=== PATIENT | male | born 1955 | race Two or more races ===

== ENCOUNTER 2016-12-06 20:03 | Emergency (ER) | payer OTHER ==
[~2016-12-06] VITALS: Ht 167.6 cm; Wt 74.4 kg
--- NOTE | 2016-12-06 21:20 | NUR ---
Patient walked in to ER c/o rash/wound to RIGHT lower extremity. Patient states that he had a small wound (possibly a bugbite) which was cleaned by family approximately one week CUSTOM CLOTHIER. Patient states that yesterday the wound was again cleaned by family as it was observed to have grown in size. Patient presents with an approximate 5" x 1.5" area of weeping erythema to his RIGHT delgadillo. To room 4B.
[2016-12-06] MEDS ORDERED: TDAP DIPH,PERTUSS,TET VAC/PF 0.5 ML DISP.SYRIN IM ONE ×2 (22:30→22:41)
[2016-12-06] MEDS ORDERED: NEOMY/BACITRA/POLYMYXIN B OINT UD PACKET TP ONE ×2 (22:30→23:03)
[2016-12-06] MEDS ORDERED: CLINDAMYCIN HCL 150 MG CAPSULE PO ONE (22:45)
--- NOTE | 2016-12-06 22:54 | NUR ---
Patient discharged to home in stable conditon. Written and verbal after care instructions given. Patient verbalizes understanding of instructions.
[2016-12-06] MEDS ORDERED: CLINDAMYCIN HCL 300 MG CAPSULE ONE (23:03)
== END 2016-12-06 22:54 | disposition home or self-care (01) ==
LOC: ER 20:05
DX: S81.801A Unspecified open wound, right lower leg, initial encounter (principal); F17.200 Nicotine dependence, unspecified, uncomplicated; X58.XXXA Exposure to other specified factors, initial encounter; Y93.89 Activity, other specified; Y92.9 Unspecified place or not applicable; Y99.9 Unspecified external cause status
CPT/HCPCS: 90471; 90715; 99283; A4663

== ENCOUNTER 2016-12-19 17:44 | Inpatient (IN) | payer OTHER ==
[~2016-12-19] VITALS: Ht 162.6 cm; Wt 76.2 kg
[2016-12-19] MEDS ORDERED: PIPERACILLIN SODIUM/TAZOBACTAM 3.375 G in IV DEXTROSE 5% 50 ML IV ONE (18:30)
[2016-12-19] MEDS ORDERED: VANCOMYCIN IV 1,000 MG in IV DEXTROSE 5% 250 ML IV ONE (18:30)
[2016-12-19] MEDS ORDERED: IV NORMAL SALINE 1000 ML BAG IV ONE (18:30)
[2016-12-19] MEDS ORDERED: PIPERACILLIN/TAZOBACTAM/D5W 50 ML IV ONE (18:58)
[2016-12-19 19:18] LABS: BASOPHILS # (AUTO) 0.1 K/uL (0.0-8.0); BASOPHILS % (AUTO) 0.7 % (0.0-2.0); CREATININE 1.1 mg/dL (0.6-1.3); EOSINOPHILS # (AUTO) 0.5 K/uL (0.0-0.7); EOSINOPHILS % (AUTO) 5.9 % (0.0-7.0); HEMATOCRIT 44.4 % (40-50); HEMOGLOBIN 15.5 G/DL (14.0-18.0); LYMPHOCYTES # (AUTO) 2.8 K/UL (0.8-4.8); LYMPHOCYTES % (AUTO) 34.9 % (20.5-51.5); MEAN CORPUSCULAR HEMOGLOBIN 30.7 UUG (27.0-31.0); MEAN CORPUSCULAR HGB CONC 35 g/dL (32.0-37.0); MONOCYTES # (AUTO) 0.5 K/UL (0.1-1.30); MONOCYTES % (AUTO) 6.2 % (0.0-11.0); NEUTROPHILS # (AUTO) 4.2 K/UL (1.8-8.9); NEUTROPHILS % (AUTO) 52.3 % (38.5-71.5); PLATELET COUNT (AUTO) 182 K/UL (150-450); POTASSIUM 3.3 mmol/L (3.5-5.1); RED BLOOD CELL COUNT(AUTO) 5.05 MIL/UL (4.7-6.1); WHITE BLOOD COUNT (AUTO) 8.1 K/UL (4.0-11.2)
[2016-12-19 19:23] LABS: BILIRUBIN,DIRECT 0.1 mg/dL (0.0-0.2); BILIRUBIN,TOTAL 0.4 mg/dL (0.2-1.0); TOTAL PROTEIN, SERUM 7.1 g/dL (6.4-8.2)
--- NOTE | 2016-12-19 19:34 | NUR ---
EPIC PAGED AT THIS TIME.
--- NOTE | 2016-12-19 19:36 | NUR ---
DR. MARCUM PLUG OVERWRAP MACHINE TENDER, AWAITING CALL BACK.
[2016-12-19] MEDS ORDERED: VANCOMYCIN 1000 MG VIAL ONE (19:37)
--- NOTE | 2016-12-19 19:56 | NUR ---
Pt. admitted to MED/SURGE , under care of Dr. MARCUM Belongs List completed.
--- NOTE | 2016-12-19 20:03 | NUR ---
REPORT CALLED TO CHAD SALINAS. NS AND IV ABX INFUSING. REPORT GIVEN TO RITA TO COMPLETE FLUIDS AND ABX.
--- NOTE | 2016-12-19 20:30 | NUR ---
PATIENT ADMITTED AT 2030 [facility], MED-SURG STATUS. CAME FROM ED, THROUGH [facility]. PATIENT IS A/OX3, DANISH-SPEAKING. SPOUSE PRESENT TO TRANSLATE. PATIENT IS AMBULATORY, WITH STEADY GAIT, ABLE TO AMBULATE FROM [facility] TO BED. PATIENT IN STABLE CONDITION. BLOOD PRESSURE ELEVATED, WILL CONTINUE TO MONITOR PATIENT'S BLOOD PRESSURE. ALL OTHER VITALS WNL. NO S/S OF DISTRESS. PATIENT COMPLAINS OF 5/10 DULL/BURNING PAIN ON PAIN SCALE AT RIGHT LEG, WHERE CELLULITIS IS PRESENT. PATIENT SAYS PAIN LEVEL IS TOLERABLE. BED IN LOCKED/LOW POSITION WITH SIDE RAILS UP X2. COMFORT/SAFETY WILL BE PROVIDED THROUGHOUT SHIFT.
[2016-12-19 20:45] VITALS: BP 166/88
[2016-12-19] MEDS ORDERED: POTASSIUM CHLORIDE 20 MEQ TAB.PRT.SR PO ONE (21:30)
[2016-12-19] MEDS ORDERED: PIPERACILLIN/TAZOBACTAM/D5W 50 ML IV SCH (21:30)
[2016-12-19] MEDS ORDERED: ONDANSETRON 4 MG/2 ML VIAL IV PRN (21:30)
[2016-12-19] MEDS ORDERED: ZOLPIDEM 5 MG TABLET PO PRN (21:30)
[2016-12-19] MEDS ORDERED: MAGNESIUM HYDROXIDE 30 ML LIQUID UDC PO PRN (21:30)
--- NOTE | 2016-12-19 21:30 | NUR ---
ZOSYN SCHEDULED FOR 2129 NOT ADMINISTERED BECAUSE IT WAS GIVEN IN THE EMERGENCY DEPARTMENT. NEXT DOSE TO ADMINISTER WILL BE AT 0.
[2016-12-19] MEDS ORDERED: CLONIDINE HCL 0.1 MG TABLET PO PRN (21:45)
[2016-12-19] MEDS ORDERED: PIPERACILLIN SODIUM/TAZO 3.375 GM VIAL ONE (22:35)
[2016-12-20 01:01] VITALS: BP 166/80
[2016-12-20] MEDS ORDERED: POTASSIUM CHLORIDE 20 MEQ TAB.PRT.SR ONE (01:11)
--- NOTE | 2016-12-20 03:00 | NUR ---
K-DUR 20 MEQ ADMINISTERED AT 0300
--- NOTE | 2016-12-20 03:00 | NUR ---
ZOSYN ADMINISTERED TO PATIENT. FIRST DOSE GIVEN AFTER ADMISSION INTO [facility]-S[facility].
[2016-12-20] MEDS: ACETAMINOPHEN 325 MG TABLET PO PRN ×2 (06:13→20:10)
--- NOTE | 2016-12-20 06:13 | NUR ---
TYLENOL GIVEN TO PATIENT FOR DULL LEFT SHOULDER PAIN 8/10 ON PAIN SCALE.
[2016-12-20] MEDS ORDERED: ACETAMINOPHEN 325 MG TABLET ONE (06:26)
--- NOTE | 2016-12-20 06:33 | NUR ---
PATIENT SLEPT COMFORTABLY MOSTLY THROUGH THE NIGHT SINCE ADMISSION. PATIENT IS IN STABLE CONDITION. PATIENT'S VSS. REASSESSMENT OF BP THROUGHOUT SHIFT: BP WNL. MOST RECENT AT 0400 126/70. BED IN LOCKED/LOW POSITION, WITH SIDE RAILS UP X2. CALL LIGHT WITHIN REACH. SAFETY WILL CONTINUE TO BE PROVIDED UNTIL SHIFT IS COMPLETED.
[2016-12-20 06:38] LABS: BASOPHILS % (AUTO) 0.4 % (0.0-2.0); EOSINOPHILS # (AUTO) 0.4 K/uL (0.0-0.7); EOSINOPHILS % (AUTO) 6.1 % (0.0-7.0); HEMOGLOBIN 14.9 G/DL (14.0-18.0); LYMPHOCYTES # (AUTO) 2.4 K/UL (0.8-4.8); LYMPHOCYTES % (AUTO) 33.4 % (20.5-51.5); MEAN CORPUSCULAR HEMOGLOBIN 31.4 UUG (27.0-31.0); MEAN CORPUSCULAR HGB CONC 36 g/dL (32.0-37.0); MEAN CORPUSCULAR VOLUME 88.1 FL (82.0-92.0); MONOCYTES # (AUTO) 0.5 K/UL (0.1-1.30); MONOCYTES % (AUTO) 6.5 % (0.0-11.0); NEUTROPHILS # (AUTO) 3.9 K/UL (1.8-8.9); NEUTROPHILS % (AUTO) 53.6 % (38.5-71.5); PLATELET COUNT (AUTO) 169 K/UL (150-450); RED BLOOD CELL COUNT(AUTO) 4.77 MIL/UL (4.7-6.1); WHITE BLOOD COUNT (AUTO) 7.2 K/UL (4.0-11.2)
[2016-12-20 06:39] LABS: CREATININE 1.2 mg/dL (0.6-1.3); MAGNESIUM 1.9 mg/dL (1.8-2.4); PHOSPHOROUS 3.8 mg/dL (2.5-4.9); POTASSIUM 3.6 mmol/L (3.5-5.1)
[2016-12-20 06:43] VITALS: BP 126/70
[2016-12-20] MEDS ORDERED: PIPERACILLIN/TAZOBACTAM/D5W 50 ML IV SCH (07:30)
--- NOTE | 2016-12-20 07:45 | NUR ---
Received patient asleep. Non-labored breathing. Call light within reach. With Left AC G20 intact.
[2016-12-20] MEDS: PANTOPRAZOLE SODIUM 40 MG TABLET.DR PO SCH (08:34)
[2016-12-20] MEDS: LISINOPRIL 10 MG TABLET PO SCH (08:36)
--- NOTE | 2016-12-20 10:05 | NUR ---
Tolerated breakfast. Awake, alert x4. With tolerable pain over left shoulder. Will continue to monitor.
[2016-12-20 11:57] VITALS: BP 133/72
[2016-12-20 12:05] LABS: *BILIRUBIN,URIN NEGATIVE (NEGATIVE); *BLOOD, URINE 1+ (NEGATIVE); *CLARITY,URINE CLEAR (CLEAR); *COLOR,URINE YELLOW (YELLOW); *KETONES,URINE NEGATIVE (NEGATIVE); *PROTEIN,URINE NEGATIVE (NEGATIVE); *UROBILINOGEN,URINE 0.2 E.U./dl (NORMAL); LEUKOCYTE ESTERASE ,URINE NEGATIVE (NEGATIVE); NITRITE, URINE NEGATIVE (NEGATIVE); UGLUCOSE NEGATIVE (NEGATIVE)
[2016-12-20 12:13] LABS: BACTERIA,URINE FEW /HPF (NONE SEEN); RBC,URINE 0-3 /HPF (0-3); SQUAMOUS EPITHELIAL CELL,UR FEW /HPF (NONE SEEN); WBC,URINE 0-3 /HPF (0-3)
[2016-12-20] MEDS ORDERED: MAG HYDROX/AL HYDROX/SIMETH 30 ML LIQUID UDC PO PRN (12:15)
[2016-12-20] MEDS: PIPERACILLIN/TAZOBACTAM/D5W 50 ML IV SCH ×3 (12:35→23:49)
[2016-12-20] MEDS: VANCOMYCIN IV 1 G in PREMIXED 0 EACH IV SCH (13:51)
--- NOTE | 2016-12-20 15:00 | NUR ---
Clinical Pharmacy Note: Vancomycin Pharmacy to Dose Subjective: To start vancomycin in this 61 y/o gentleman for indication of cellulitis. Objective: height 162cm weight 76kg BUN 12 Scr 1.2 Wbc 7.2 Temp 98.8 1gm vanco given 12/19 at 1932 Assessment/Plan Will start regimen of vancomycin 1gm q17hr for estimated trough of 15.9. Second dose due today at 1230. Will order trough before 4th scheduled dose ( not ordered yet). Will follow renal function and dose per level if were to become unstable. Will follow
[2016-12-20 15:30] VITALS: BP 99/56
[2016-12-20 20:00] VITALS: BP 119/73
--- NOTE | 2016-12-20 20:00 | NUR ---
RECEIVED PATIENT AWAKE IN BED WITH FAMILY AT BEDSIDE. PATIENT IS A/O X4. CITIZEN OF [place] SPEAKING BUT ABLE TO MAKE NEEDS KNOWN. C/O MILD PAIN IN RIGHT LOWER LEG. DRESSING NOTED TO AFFECTED AREA, SATURATED. WILL CHANGE DRESSING. VS WNL. NO RESP.DISTRESS NOTED. H/L INTACT AND PATENT. CALL LIGHT IN REACH. BED ALARM ON. ALL NEEDS ATTENDED. WILL CONTINUE TO MONITOR.
[2016-12-20] MEDS: ATORVASTATIN 10 MG TABLET PO SCH (20:10)
--- NOTE | 2016-12-20 20:10 | NUR ---
PATIENT GIVEN TYLENOL 650MG PO PRN FOR MILD PAIN. CALL LIGHT IN REACH. ALL NEEDS ATTENDED, WILL CONTINUE TO MONITOR.
[2016-12-20] MEDS: diphenhydrAMINE 50 MG/1 ML VIAL IV PRN (20:36)
--- NOTE | 2016-12-20 21:00 | NUR ---
PATIENTS DRESSING CHANGED. DRESSING IS CLEAN, DRY AND INTACT. WILL CONTINUE TO MONITOR.
[2016-12-21 05:07] VITALS: BP 117/63
[2016-12-21] MEDS: PIPERACILLIN/TAZOBACTAM/D5W 50 ML IV SCH ×3 (05:26→17:55)
[2016-12-21] MEDS: VANCOMYCIN IV 1 G in PREMIXED 0 EACH IV SCH ×2 (05:53→22:50)
[2016-12-21] MEDS: PANTOPRAZOLE SODIUM 40 MG TABLET.DR PO SCH (06:00)
--- NOTE | 2016-12-21 06:00 | NUR ---
PATIENT RESTING IN BED. SLEPT WELL THROUGHOUT THE NIGHT. DRESSING C/D/I. VS WNL. CALL LIGHT IN REACH. ALL NEEDS ATTENDED. WILL CONTINUE TO MONITOR.
[2016-12-21 07:03] LABS: BILIRUBIN,TOTAL 0.6 mg/dL (0.2-1.0); CREATININE 1.2 mg/dL (0.6-1.3); MAGNESIUM 2.1 mg/dL (1.8-2.4); PHOSPHOROUS 3.5 mg/dL (2.5-4.9); POTASSIUM 3.7 mmol/L (3.5-5.1); TOTAL PROTEIN, SERUM 6.6 g/dL (6.4-8.2)
[2016-12-21 07:26] LABS: BASOPHILS # (AUTO) 0.1 K/uL (0.0-8.0); BASOPHILS % (AUTO) 0.8 % (0.0-2.0); EOSINOPHILS # (AUTO) 0.5 K/uL (0.0-0.7); EOSINOPHILS % (AUTO) 7.9 % (0.0-7.0); HEMATOCRIT 41.7 % (36.7-47.1); HEMOGLOBIN 14.9 g/dL (12.5-16.3); LYMPHOCYTES # (AUTO) 2.1 K/uL (20.0-40.0); LYMPHOCYTES % (AUTO) 34.8 % (20.5-51.5); MEAN CORPUSCULAR HEMOGLOBIN 31.4 uug (23.8-33.4); MEAN CORPUSCULAR HGB CONC 36 g/dL (32.5-36.3); MEAN CORPUSCULAR VOLUME 87.8 fL (73.0-96.2); MONOCYTES # (AUTO) 0.5 K/uL (2.0-10.0); MONOCYTES % (AUTO) 8.7 % (0.0-11.0); NEUTROPHILS # (AUTO) 2.9 K/uL (1.8-8.9); NEUTROPHILS % (AUTO) 47.8 % (38.5-71.5); PLATELET COUNT (AUTO) 148 K/uL (152-348); RED BLOOD CELL COUNT(AUTO) 4.75 MIL/uL (4.06-5.63); WHITE BLOOD COUNT (AUTO) 6.1 K/uL (3.6-10.2)
[2016-12-21] MEDS: LISINOPRIL 10 MG TABLET PO SCH (08:32)
--- NOTE | 2016-12-21 09:00 | NUR ---
PATIENT RECEIVED IN BED AWAKE ALERT AND ORIENTED DENIES PAIN OR DISCOMFORTS AT THIS TIME.RIGHT LEG WITH DRESSING WITH MILD SEROUS SANGIONOUS DRAINAGE PATIENT ENCOURAGED TO ELEVATE HIS RIGHT LEG ON THE PILLOW TO REDUCE SWELLING AND HE EXPRESSED UNDERSTANDING.
[2016-12-21 12:07] VITALS: BP 115/62
--- NOTE | 2016-12-21 12:07 | NUR ---
WOUND CARE CONSULT: PT PRESENTS WITH RT LOWER LEG WITH LARGE DARK RED AREA WHICH IS OOZING YELLOW DRAINAGE. RECOMMENDATIONS MADE FOR WOUND CARE. DISCUSSED WITH NURSING STAFF. PT IS AMBULATORY AND CONTINENT. RECOMMEND PODIATRY CONSULT. IN AGREEMENT WITH PLAN OF CARE. Addendum: 12/21/16 at 1209 by LISSETTE BEAUCHAMP RN Amended: Links added.
[2016-12-21] MEDS ORDERED: SILVER SULFADIAZINE 1% CREAM 25 GM TUBE TP SCH (12:15)
--- NOTE | 2016-12-21 13:31 | NUR ---
Clinical Pharmacy Note: Vancomycin Pharmacy to Dose Subjective: To continue vancomycin in this 61 y/o gentleman for indication of cellulitis. Objective: height 162cm weight 76kg BUN 12 Scr 1.2 Wbc 6.1 Temp 98.5 Assessment/Plan Will continue regimen of vancomycin 1gm q17hr for estimated trough of 15.9. Third dose given today at 0553. Will order trough before 4th scheduled dose ( ordered for tonight at 2200). RN will be informed not to give dose if trough 20 or over. Will follow renal function and dose per level if were to become unstable. Will follow
[2016-12-21] MEDS: SILVER SULFADIAZINE 1% CREAM 25 GM TUBE TP SCH ×2 (14:04→20:31)
[2016-12-21 15:37] VITALS: BP 107/58
--- NOTE | 2016-12-21 16:30 | NUR ---
PATIENT SEEN AND EXAMINED BY DR AKHTAR THE ATOMIC PHYSICS TEACHER WITH NEW ORDERS AND NOTED.
--- NOTE | 2016-12-21 18:00 | NUR ---
RESTING WITH DRESSING DRY AND INTACT REMAIN ON IV ATB ORDERED WITH NO ADVERSE OR ALLERGIC REACTIONS AT THIS TIME.
[2016-12-21 19:00] VITALS: BP 152/75
--- NOTE | 2016-12-21 19:35 | NUR ---
PT RECEIVED IN BED, AWAKE. SON AT BEDSIDE. A/OX4. UKRAINIAN SPEAKING, BUT ABLE TO MAKE NEEDS KNOWN. V/S STABLE. IN NO ACUTE DISTRESS. PT C/O RIGHT LEG PAIN OF 8/10. WILL ADMIN PAIN MEDICATION ORDERED. IV INTACT/PATENT. ON RA, TOLERATING WELL. AFEBRILE. LEGS ELEVATED. SAFETY MEASURES IMPLEMENTED. CALL LIGHT WITHIN REACH.
--- NOTE | 2016-12-21 19:40 | NUR ---
PT RECEIVED IN BED, AWAKE. A/OX4. ABLE TO MAKE NEEDS KNOWN. 1:1 SITTER AT BEDSIDE FOR SAFETY. PLEASANT ON APPROACH. STATES FEELING SUICIDAL IDEATION ON AND OFF, NO SPECIFIC PLAN. STATES ATIVAN HELPS. WILL ADMIN ORDERED. V/S STABLE. IN NO ACUTE DISTRESS. NO C/O PAIN. IVF INFUSING. ON RA TOLERATING WELL. IVF INFUSING. ON RA, TOLERATING WELL. AFEBRILE. SEIZURE PRECAUTIONS IN PLACE. SAFETY MEASURES IMPLEMENTED. CALL LIGHT WITHIN REACH.
[2016-12-21] MEDS: LACTOBACILLUS RHAMNOSUS GG 1 EACH CAPSULE PO SCH (20:29)
[2016-12-21] MEDS: ATORVASTATIN 10 MG TABLET PO SCH (20:29)
[2016-12-21] MEDS: diphenhydrAMINE 50 MG/1 ML VIAL IV PRN (20:30)
[2016-12-21] MEDS: HYDROCODONE/APAP 5-325MG TABLET PO PRN (20:30)
--- NOTE | 2016-12-21 21:50 | NUR ---
RIGHT [place] AREA DRESSING SEEN WITH SCANT YELLOW DRAINAGE. DRESSING CHANGE COMPLETE. WILL CONT TO MONITOR
[2016-12-22] MEDS: PIPERACILLIN/TAZOBACTAM/D5W 50 ML IV SCH ×4 (00:32→17:17)
[2016-12-22 04:00] VITALS: BP 115/59
[2016-12-22] MEDS: PANTOPRAZOLE SODIUM 40 MG TABLET.DR PO SCH (06:13)
--- NOTE | 2016-12-22 06:45 | NUR ---
END OF SHIFT NOTES. PT SLEPT WELL THROUGHOUT SHIFT. IN STABLE CONDITION. IV ABX INFUSED. IV INTACT/PATENT. PAIN MANAGED THROUGHOUT SHIFT. RIGHT LEG ELEVATED. DRESSING C/D/I. ALL NEEDS ATTENDED. SAFETY MAINTAINED. CALL LIGHT WITHIN REACH.
--- NOTE | 2016-12-22 07:30 | NUR ---
RECEIVED PATIENT AWAKE ALERT AND ORIENTED MOSTLY ENGLISH SPEAKING DENIES PAIN OR DISCOMFORTS AT THIS TIME RIGHT LEG WITH DRESSING INTACT ENCOURAGED TO ELEVATE ON THE PILLOW AND HE EXPRESSED UNDERSTANDING.
[2016-12-22] MEDS: LACTOBACILLUS RHAMNOSUS GG 1 EACH CAPSULE PO SCH ×2 (08:32→20:14)
[2016-12-22] MEDS: HYDROCODONE/APAP 5-325MG TABLET PO PRN ×2 (08:33→17:26)
[2016-12-22] MEDS: LISINOPRIL 10 MG TABLET PO SCH (08:33)
[2016-12-22] MEDS: SILVER SULFADIAZINE 1% CREAM 25 GM TUBE TP SCH ×2 (08:36→20:13)
--- NOTE | 2016-12-22 09:06 | NUR ---
DR MOURA HERE SEEN AND EXAMINED PATIENT AND THE DECISION IS THAT PATIENT WILL BE DISCHARGED TO THE SNF TO CONTINUE IV ATB FOR NOW PATIENT IS AWARE AND EXPRESSED UNDERSTANDING.
--- NOTE | 2016-12-22 10:09 | NUR ---
PATIENTS DAUGHTER NIRMALA IS HERE AND SPOKE WITH THE ERECTING ENGINEER AND THE PLAN IS THAT PATIENT WILL BE DISCHARGED HOME TODAY TO CONTINUE THE IV ANTIBIOTICS AND WILL GET A MIDLINE THIS AFTERNOON AND THE ERECTING ENGINEER IS WORKING ON HIS INSURANCE RE DISCHARGE.
[2016-12-22 11:19] VITALS: BP 117/66
[2016-12-22] MEDS: VANCOMYCIN IV 1 G in PREMIXED 0 EACH IV SCH ×2 (11:20→23:53)
--- NOTE | 2016-12-22 11:40 | NUR ---
Clinical Pharmacy Note: Vancomycin Pharmacy to Dose Subjective: To continue vancomycin in this 61 y/o gentleman for indication of cellulitis. Objective: height 162cm weight 76kg BUN 12 (12/21) Scr 1.2 (12/21) Wbc 6.1 (12/21) Temp 97.5 vanco trough level: 6.8 Assessment/Plan Since vanc trough level is sub-therapeutic, will change dose from vancomycin 1gm IVPB q17hr to vanco 1 gm IVPB q12h or estimated trough of 15 mcg/ml. 1st dose is due today at 1100. Will order trough before 4th scheduled dose ( not yet ordered). Will follow renal function and dose per level if were to become unstable. Will follow
--- NOTE | 2016-12-22 13:27 | NUR ---
SENIOR DIRECTOR STATED THAT SHE IS STILL ARRANGING FOR HOME ANTIBIOTICS AND HOME HEALTH PATIENTS DAUGHTER NIRMALA IS AWARE AND STATED THAT SHE IS ON HER WAY TO WORK AND WILL COME TO SAMPLE BU[employer]DER HER FATHER THIS EVENING AFTER WORK.REMAIN ON IV ANTIBIOTICS ORDERED WITH NO ADVERSE OR ALLERGIC REACTIONS AT THIS TIME.STILL AWAITING FOR MID LINE PLACEMENT BY THE MID LINE RN.
--- NOTE | 2016-12-22 15:12 | NUR ---
MID LINE INSERTED TO HIS LEFT UPPER ARM ORDERED AND PATIENT TOLERATED WELL STILL AWAITING FOR THE INSURANCE APPROVAL FOR HOME IV ANTIBIOTICS AND HOME HEALTH.
[2016-12-22 15:42] VITALS: BP 112/67
--- NOTE | 2016-12-22 17:04 | NUR ---
clerical production worker: Discharge Planning [facility] has accepted patient for physical therapy and wound care, however pending approval from [facility]. Will follow up with [facility] in the morning to ensure authorization and subsequent home care for patient. Patient will also be receiving IV antibiotic therapy through [facility] pharmacy. Phone number is [phone], . They are in the process of coordinating with [facility] that will will send an RN to infuse beginning tomorrow morning. This evening patient will receive last IV dose. RN made aware of discharge plan. Addendum: 12/22/16 at 1737 by CLAUDIA NICHOLS RN [facility] will see the patient tomorrow for IV antibiotic therapy. Addendum: 12/22/16 at 1755 by CLAUDIA NICHOLS RN [facility] has arranged for their home health to provide IV antibiotic therapy.
--- NOTE | 2016-12-22 17:41 | NUR ---
SEE POWER TRUCK DRIVER NOTES WILL ENDORSE TO THE NEXT SHIFT TO INSTRUCT PATIENT ON THE FACT THAT THE PATIENT WILL BE DISCHARGED TONITE AFTER HER VANCOMICIN DOSE AND THE PSYCHIATRIC TECHNICIAN WILL FOLLOW UP WITH THE [facility] IN AM TO ENSURE AUTHORIZATION AND SUBSEQUENT HOME CARE FOR PATIENT.PATIENTS DAUGHTER NIRMALA WILL BE PICKING HIM UP AFTER THE LAST IV ANTIBIOTICS INFUSSION AND SHE WILL BE INSTRUCTED ON THESE DEVELOPMENTS AND WILL BE PROVIDED WITH INFO FOR FOLLOW UP.
--- NOTE | 2016-12-22 18:47 | NUR ---
PATIENTS DAUGHTER NIRMALA STOPPED BY ON HER WAY FROM WORK AND I NOTIFIED HER THAT THE PATIENTS LAST ANTIBIOTICS WILL BE STARTED AT 10PM FOR 11/2 HOURS THEN PATIENT WILL BE DISCHARGED AFTER THAT AND SHE EXPRESSED UNDERSTANDING AND STATED THAT SHE WILL COME BACK AT THAT TIME.
--- NOTE | 2016-12-22 19:30 | NUR ---
Received patient laying comfortably in bed. HOB elevated. No acute distress noted. No c/o pain. Citizen Of [place] speaking only. Midline on the left FA patent and intact. Patient is ambulatory with minimal assist. Dressing on the right leg C/D/I. However, I plan to do a dressing change. Safety initiated. Call light within reach. Will continue to monitor.
[2016-12-22 20:00] VITALS: BP 134/70
[2016-12-22] MEDS: ATORVASTATIN 10 MG TABLET PO SCH (20:14)
--- NOTE | 2016-12-22 21:00 | NUR ---
Wound care done. Dressing change done. Patient tolerated well.
--- NOTE | 2016-12-22 23:54 | NUR ---
Patient discharged. Patient's daughter came to pick him up. Left with his belongings. Discharge protocol followed. All needs met.
== END 2016-12-22 22:41 | disposition home health service (06) | DRG 383 ==
LOC: ER 17:46 → TELE 19:56 → MED 20:00
PROVIDERS: ADMIT Internal Medicine; ATTEND Internal Medicine
PROC: 05H633Z Insertion of Infusion Device into Left Subclavian Vein, Percutaneous Approach (ICD-10-PCS; principal; 2016-12-22)
DX: L03.115 Cellulitis of right lower limb (principal); L97.819 Non-pressure chronic ulcer of other part of right lower leg with unspecified severity; I10 Essential (primary) hypertension; E78.5 Hyperlipidemia, unspecified; S80.821A Blister (nonthermal), right lower leg, initial encounter; X58.XXXA Exposure to other specified factors, initial encounter; Y92.89 Other specified places as the place of occurrence of the external cause; I87.8 Other specified disorders of veins; F17.210 Nicotine dependence, cigarettes, uncomplicated; Z98.890 Other specified postprocedural states; E87.6 Hypokalemia; E83.51 Hypocalcemia
CPT/HCPCS: 36415; 71010; 73590; 83605; 83735; 84100; 84443; 85025; 85730; 87040; 87070; 87086; 87806; 93307; A4217; A4663; J1200; J2543; J3370; J7030; J7040; J7060